=== PATIENT | female | born 1965 | race Caucasian/White ===

== ENCOUNTER → 2022-04-24 | Day surgery (SDC) | payer OTHER ==
[2022-04-22 12:34] LABS: BASOPHILS % 0.4 % (0.0-1.0); EOSINOPHILS # (AUTO) 0.4 (0.0-0.4); EOSINOPHILS % 4.8 % (0.0-6.0); HEMATOCRIT 38.5 % (34.2-44.1); HEMOGLOBIN 11.7 g/dL (12.0-16.0); LYMPHOCYTES # (AUTO) 2.3 (1.0-3.2); LYMPHOCYTES % 29.8 % (18.0-39.1); MEAN CORPUSCULAR HEMOGLOBIN 29.8 pg (28-32); MEAN CORPUSCULAR HGB CONC 30.4 g/dL (31-35); MEAN CORPUSCULAR VOLUME 98.2 fL (81-99); MONOCYTES # (AUTO) 0.5 (0.2-0.8); NEUTROPHILS # (AUTO) 4.5 (2.1-6.9); NEUTROPHILS % 57.6 % (38.7-80.0); PLATELET COUNT 344 x10e3/uL (140-360); RED BLOOD COUNT 3.92 x10e6/uL (3.6-5.1)
[2022-04-22 13:10] LABS: CALCIUM 9.8 mg/dL (8.4-10.2); CREATININE, SERUM 0.56 mg/dL (0.57-1.11)
[~2022-04-24] MED LIST: COREG6.25 MG PO; EPHEDRINE SULFATE INJ 50 MG/ML VIAL ONE; FLINTSTONES WIT18 MG PO; GENTAMICIN 80MG/NS 100 ML 200 ML IV ONE; LIDOCAINE HCL 2% LOCAL INJ 5 ML SDV VIAL INJ ONE; LIPITOR20 MG PO; ONDANSETRON HCL INJ 2MG/ML 2ML 2 MG/ML VIAL ONE; PROPOFOL IV EMULSION 10 MG/ML 20 ML VIAL ONE; SEROQUEL25 MG PO; SEVOFLURANE INHAL SOLN 250 ML PEN BTL ONE; SYNTHROID75 MCG PO; VALIUM10 MG PO; VITAMIN B12 PF; VITAMIN D; VITAMIN D3 PO; ZINC PO; [UNRECOGNIZED DRUG - OTHER] IV
[2022-04-24 14:30] VITALS: BP 132/84
== END | disposition home or self-care (01) ==
LOC: OR 10:29
PROVIDERS: ATTEND Urology
DX: N13.2 Hydronephrosis with renal and ureteral calculous obstruction (principal); N39.0 Urinary tract infection, site not specified; Z46.6 Encounter for fitting and adjustment of urinary device; Z43.6 Encounter for attention to other artificial openings of urinary tract; N81.10 Cystocele, unspecified; N81.6 Rectocele; N95.2 Postmenopausal atrophic vaginitis; J45.909 Unspecified asthma, uncomplicated; I10 Essential (primary) hypertension; E11.9 Type 2 diabetes mellitus without complications; Z88.1 Allergy status to other antibiotic agents; Z88.0 Allergy status to penicillin; Z01.810 Encounter for preprocedural cardiovascular examination; Z01.812 Encounter for preprocedural laboratory examination; Z01.818 Encounter for other preprocedural examination; Z79.899 Other long term (current) drug therapy
CPT/HCPCS: 36415 ×2; 50389; 50590; 52332; 74018; 80048; 82948; 83970; 84550; 85025; 87086; 93005; C1758; C1769; C2617; J1580; J2001; J2405; J2704

== ENCOUNTER → 2022-07-01 | Day surgery (SDC) | payer OTHER ==
[2022-06-30 09:42] LABS: BASOPHILS # (AUTO) 0.1 (0.0-0.1); BASOPHILS % 0.7 % (0.0-1.0); EOSINOPHILS # (AUTO) 0.3 (0.0-0.4); EOSINOPHILS % 3.8 % (0.0-6.0); HEMOGLOBIN 12.5 g/dL (12.0-16.0); LYMPHOCYTES # (AUTO) 2.3 (1.0-3.2); LYMPHOCYTES % 32.2 % (18.0-39.1); MEAN CORPUSCULAR HEMOGLOBIN 29.6 pg (28-32); MEAN CORPUSCULAR HGB CONC 32.9 g/dL (31-35); MONOCYTES # (AUTO) 0.6 (0.2-0.8); MONOCYTES % 7.8 % (4.4-11.3); NEUTROPHILS # (AUTO) 3.9 (2.1-6.9); NEUTROPHILS % 55.2 % (38.7-80.0); PLATELET COUNT 247 x10e3/uL (140-360); RED BLOOD COUNT 4.22 x10e6/uL (3.6-5.1); RED CELL DISTRIBUTION WIDTH 13.6 % (11.7-14.4)
[2022-06-30 12:43] LABS: CALCIUM 9.5 mg/dL (8.4-10.2); CREATININE, SERUM 0.64 mg/dL (0.57-1.11)
[~2022-07-01] MED LIST changes: +ATIVAN1 MG PO; +DEXAMETHASONE SOD PHOS INJ 4 MG/ML SDV ONE; -EPHEDRINE SULFATE INJ 50 MG/ML VIAL ONE; +FENTANYL CITRATE/PF 100MCG/2 ML INJ ONE; +HYDROXYZIN10 MG/5 ML PO; +IOPAMIDOL 370 MG/ML 100 ML INFUS..BTL INJ ONE; +MIDAZOLAM HCL 2 MG/2 ML VIAL ONE; +POVIDONE IODINE 0.05% 0.05 % ML PO ONE
[2022-07-01 09:18] VITALS: BP 116/71
== END | disposition home or self-care (01) ==
LOC: OR 07:05
PROVIDERS: ATTEND Urology
DX: N20.1 Calculus of ureter (principal); N20.0 Calculus of kidney; N28.89 Other specified disorders of kidney and ureter; Z46.6 Encounter for fitting and adjustment of urinary device; N81.10 Cystocele, unspecified; N81.6 Rectocele; N95.2 Postmenopausal atrophic vaginitis; N81.89 Other female genital prolapse; N39.41 Urge incontinence; R80.9 Proteinuria, unspecified; E11.9 Type 2 diabetes mellitus without complications; I10 Essential (primary) hypertension; R00.0 Tachycardia, unspecified; E03.9 Hypothyroidism, unspecified; E78.5 Hyperlipidemia, unspecified; Z88.1 Allergy status to other antibiotic agents; Z88.0 Allergy status to penicillin; Z01.812 Encounter for preprocedural laboratory examination; Z01.818 Encounter for other preprocedural examination; Z79.899 Other long term (current) drug therapy; Z87.891 Personal history of nicotine dependence; Z84.1 Family history of disorders of kidney and ureter; Z80.52 Family history of malignant neoplasm of bladder
CPT/HCPCS: 36415 ×2; 52352; 74018; 74420; 80048; 82948; 84550; 85025; 87086; 87186; 88300; C1769; J1100; J1580; J2001; J2250; J2405; J2704; J3010; Q9967